=== PATIENT | male | born 1955 | race Caucasian/White ===

== ENCOUNTER 2017-03-19 06:09 | Day surgery (SDC) | payer MEDICARE, SELFPAY ==
[~2017-03-19] VITALS: Ht 175.3 cm; Wt 78.5 kg
[~2017-03-19 06:09] MED LIST: BENAML10/2 PO; SERT50 PO
[2017-03-20 09:24] LABS: Creatinine, Body Fluid 0.92 mg/dL
[2017-03-20] MEDS ORDERED: DOCU100 PO (11:16)
[2017-03-20] MEDS ORDERED: HYDR1TAB94 PO (11:17)
== END 2017-03-20 14:29 | disposition home or self-care (01) ==
LOC: SURS 06:09
PROVIDERS: Urology
PROC: 8E0W4CZ Robotic Assisted Procedure of Trunk Region, Percutaneous Endoscopic Approach (ICD-10-PCS; principal; 2017-03-19 07:30)
PROC: 0VT04ZZ Resection of Prostate, Percutaneous Endoscopic Approach (ICD-10-PCS; principal; 2017-03-19 07:30)
DX: C61 Malignant neoplasm of prostate (principal); I10 Essential (primary) hypertension; G47.33 Obstructive sleep apnea (adult) (pediatric); F17.210 Nicotine dependence, cigarettes, uncomplicated; Z79.899 Other long term (current) drug therapy
CPT/HCPCS: 82570; 88304; 88309; J0690; J0744; J2250; J2270; J2370; J2710; J3010; J7042; J7120

== ENCOUNTER 2024-11-01 08:06 | Day surgery (SDC) | payer MEDICARE ==
[~2024-11-01] VITALS: Ht 175.3 cm; Wt 76.6 kg
[~2024-11-01 08:06] MED LIST changes: +ATOR40TA PO; +CHLO25B PO; +DOCU100 PO; +FAMO20 PO; +HYDR1TAB94 PO; +METFORMIN HCL500 M3 PO; +NEURONTIN300 MG PO; +TRIDERM28.4 GM TOP
[2024-11-01] MEDS ORDERED: CARV3.125 PO (08:34)
[2024-11-01 11:00] VITALS: BP 131/80
== END 2024-11-01 10:55 | disposition home or self-care (01) ==
LOC: ORSCSDS 08:06
PROVIDERS: Internal Medicine Gastroenterology
PROC: 0DBN8ZX Excision of Sigmoid Colon, Via Natural or Artificial Opening Endoscopic, Diagnostic (ICD-10-PCS; principal; 2024-11-01 10:00)
PROC: 0DBL8ZX Excision of Transverse Colon, Via Natural or Artificial Opening Endoscopic, Diagnostic (ICD-10-PCS; principal; 2024-11-01 10:00)
DX: Z12.11 Encounter for screening for malignant neoplasm of colon (principal); D12.3 Benign neoplasm of transverse colon; K63.5 Polyp of colon; K57.30 Diverticulosis of large intestine without perforation or abscess without bleeding; R19.5 Other fecal abnormalities; Z86.0101 Personal history of adenomatous and serrated colon polyps; E11.9 Type 2 diabetes mellitus without complications; I10 Essential (primary) hypertension; E78.00 Pure hypercholesterolemia, unspecified; F17.210 Nicotine dependence, cigarettes, uncomplicated; Z79.84 Long term (current) use of oral hypoglycemic drugs; Z79.899 Other long term (current) drug therapy
CPT/HCPCS: 82947; 88305; J2704; J7120